=== PATIENT | female | born 1995 | race Caucasian/White ===

== ENCOUNTER 2016-12-31 11:22 | Emergency (ER) | payer OTHER | END 2016-12-31 18:32 | disposition left against medical advice (07) | LOC: ER 13:03 | DX: R07.9 Chest pain, unspecified (principal); Z53.21 Procedure and treatment not carried out due to patient leaving prior to being seen by health care provider ==

== ENCOUNTER 2022-01-30 14:56 | Emergency (ER) | payer MEDICAID, OTHER ==
[~2022-01-30] VITALS: Ht 165.1 cm; Wt 109.0 kg
[2022-01-30] MEDS ORDERED: KETOROLAC 60MG/2ML VIAL IM ONE (15:30)
[2022-01-30] MEDS ORDERED: IBUP-2030 MT (16:28)
[2022-01-30 16:35] VITALS: BP 127/67
== END 2022-01-30 16:36 | disposition home or self-care (01) ==
LOC: ER 14:56
DX: D17.0 Benign lipomatous neoplasm of skin and subcutaneous tissue of head, face and neck (principal)
CPT/HCPCS: 96372; 99283; J1885

== ENCOUNTER 2022-06-10 12:30 | Emergency (ER) | payer OTHER ==
[~2022-06-10] VITALS: Ht 165.1 cm; Wt 106.0 kg
[~2022-06-10 12:30] MED LIST: IBUP-2030 MT
[2022-06-10 12:48] VITALS: BP 128/88
== END 2022-06-10 16:05 | disposition left against medical advice (07) ==
LOC: ER 12:30
DX: Z53.21 Procedure and treatment not carried out due to patient leaving prior to being seen by health care provider (principal)

== ENCOUNTER 2024-07-21 16:05 | Emergency (ER) | payer OTHER ==
[~2024-07-21] VITALS: Ht 165.1 cm; Wt 114.0 kg
[2024-07-21 16:23] VITALS: O2SAT 98
[2024-07-21 18:14] VITALS: TEMP 98
[2024-07-21] MEDS: ACETAMINOPHEN 325MG TABLET PO ONE (18:14)
[2024-07-21 18:16] LABS: BASOPHILS % 0.5 % (0.0-2.0); EOSINOPHILS % 1.4 % (0.0-5.0); HEMATOCRIT. 41.1 % (36.0-48.0); HEMOGLOBIN. 14.1 g/dL (12.0-16.0); LYMPHOCYTES % 25.8 % (20.0-50.0); MEAN CORPUSCULAR HEMOGLOBIN 29.5 pg (28.0-32.0); MEAN CORPUSCULAR HGB CONC 34.3 g/dL (31.0-37.0); MEAN CORPUSCULAR VOLUME 85.9 fL (81.0-99.0); MEAN PLATELET VOLUME 7.4 fl (7.4-10.4); MONOCYTES % 5.4 % (2.0-8.0); NEUTROPHILS % 66.9 % (40.0-76.0); PLATELET 250 x1000/uL (130-400); RED BLOOD CELL COUNT 4.78 mill/uL (4.2-5.4); RED CELL DISTRIBUTION WIDTH 13.6 % (11.6-14.6); WHITE BLOOD COUNT 7.4 x1000/uL (4.5-11.0)
[2024-07-21 18:20] LABS: CHLORIDE 107 mEq/L (98-107); POTASSIUM 3.7 mEq/L (3.5-5.1); SODIUM 140 mEq/L (136-145)
[2024-07-21 18:21] LABS: CARBON DIOXIDE 29 mEq/L (21-32)
[2024-07-21 18:22] LABS: CALCIUM 10.1 mg/dL (8.7-10.4)
[2024-07-21 18:27] LABS: GLUCOSE 93 mg/dL (70-105); UREA NITROGEN BLOOD 10 mg/dL (9-23)
[2024-07-21 18:28] LABS: INR 0.9; PROTHROMBIN TIME 10.5 sec (9.6-11.0)
[2024-07-21 19:23] VITALS: BP 130/80; PULSE 70; RESP 15; O2SAT 99
== END 2024-07-21 19:32 | disposition home or self-care (01) ==
LOC: ER 16:05
DX: T14.90XA Injury, unspecified, initial encounter (principal); Z98.890 Other specified postprocedural states; X58.XXXA Exposure to other specified factors, initial encounter; Y93.89 Activity, other specified; Y92.89 Other specified places as the place of occurrence of the external cause; Y99.8 Other external cause status
CPT/HCPCS: 36415; 80048; 85025; 99284